=== PATIENT | male | born 1955 | race Caucasian/White ===

== ENCOUNTER → 2016-08-06 | Day surgery (SDC) | payer OTHER ==
[~2016-08-06] MED LIST: ALBUTEROL17 GM INH; NO MEDICATIONS; PREDNISONE PO; ZITHROMAX PO
--- NOTE | ~2016-08-06 | OR ---
Unit #: [id number] #: [id number] Patient: ROVERTO ROMANO [id number] [address] [address] [id number] MR#: [id number] NAME: ROVERTO ROMANO ROOM: Date of Procedure: 08/06/2016 Admission Date: 08/06/2016 Surgeon: Justin Dove M.D. : 1955 Attending Physician: Justin Dove M.D. Primary Care Physician: Becca Joseph M.D. OPERATIVE REPORT PROCEDURES PERFORMED Colonoscopy with polypectomy and esophagogastroduodenoscopy with biopsy. PREOPERATIVE DIAGNOSES Chronic gastroesophageal reflux disease, epigastric pain. POSTOPERATIVE DIAGNOSES Sigmoid polyp x2, internal hemorrhoids, duodenitis, refluxing esophagitis. ANESTHESIA Monitored anesthesia care. DESCRIPTION OF PROCEDURE EGD: After adequate explanation of the risks, benefits and alternatives of the procedure, an informed consent by the patient was obtained. The patient was brought to the Endoscopy Suite. Intravenous sedation was administered. With the patient lying in the left lateral position and after placing the mouthpiece in the mouth, after adequate visualization of the vocal cords, a laryngoscopy was also done and the scope was passed via cricopharyngeus into the esophagus. After this, the esophageal mucosa was examined with an examination of the proximal, middle, and distal esophagus. The scope was then advanced into the stomach where a retroflexed view was obtained to examine the fundus and the angularis incisura. The lesser and greater curvature were examined. After adequate air insufflation, the antrum was then examined. The scope was then advanced to the pylorus and the scope was passed via pylorus up to the descending duodenum. The duodenal bulge and descending duodenum were examined very well. The scope was slowly withdrawn. The patient tolerated the procedure very well. COLONOSCOPY: After adequate explanation of the risks, benefits and alternatives of the procedure, an informed consent was obtained from the patient. The patient was brought to the Endoscopy Suite. Intravenous sedation was administered. The patient was placed in the left lateral position. The colonoscope was introduced into the rectum and advanced to the cecum without difficulty. Once in the cecum, the anatomic landmarks were identified very well. The ileocecal valve was examined. The appendiceal orifice was examined. The scope was slowly withdrawn with the findings as noted in the next section. Adequate mucosal visualization of the colonic mucosa was done upon slow withdrawal. The scope was slowly withdrawn into the rectum and a retroflexed view was also obtained. The scope was withdrawn. The patient tolerated the procedure very well. Unit #: [id number] #: [id number] Patient: ROVERTO ROMANO COLONOSCOPY FINDINGS CECUM: Normal. ILEOCECAL VALVE: Normal. APPENDICEAL ORIFICE: Normal. ASCENDING COLON: Normal. TRANSVERSE COLON: Normal. DESCENDING COLON: Normal. SIGMOID COLON: Evidence of a few hyperplastic polyps. Two of these were removed with fulguration technique. No specimen obtained. RECTUM: Nonbleeding internal hemorrhoids. EGD FINDINGS LARYNGOSCOPY: ESOPHAGUS: Proximal esophagus, normal. Middle esophagus, normal. Distal esophagus, evidence of refluxing esophagitis. STOMACH: Fundus, normal. ANGULARIS INCISURA: Normal. LESSER CURVATURE: Normal. GREATER CURVATURE: Normal. ANTRUM: Normal. DUODENUM: Duodenal bulb, evidence of mucosal congestion and friability suggestive of duodenitis. No ulceration noted. Descending duodenum normal. ASSESSMENT AND PLAN 1. The patient is a 61-year-old male, presenting with epigastric pain and anorexia. Esophagogastroduodenoscopy shows evidence of acute duodenitis. Given the patient's history of significant ethanol consumption, that should be abstained at this time. In addition, the patient will be started on proton pump inhibitors. Biopsy will be reviewed to make further recommendations and see response to therapy. 2. Incidental sigmoid polyps have been noted. Followup colonoscopy in 3 years is recommended. Dictated by... Danie Barber/saadia TD: 08/07/2016 05:34 JOB #: [id number] Unit #: [id number] #: [id number] Patient: ROVERTO ROMANO OPERATIVE REPORT Page 1 of 1 X Justin Dove MD X PROCEDURE OPERATIVE NOTE
== END | disposition home or self-care (01) ==
LOC: COPS 12:01
DX: K21.0 Gastro-esophageal reflux disease with esophagitis (principal); K29.80 Duodenitis without bleeding; D12.5 Benign neoplasm of sigmoid colon; K64.8 Other hemorrhoids; F17.200 Nicotine dependence, unspecified, uncomplicated; M19.90 Unspecified osteoarthritis, unspecified site
CPT/HCPCS: 88305; J2250